=== PATIENT | female | born 1975 | race Caucasian/White ===

== ENCOUNTER → 2019-11-22 17:36 | Outpatient (CLI) | payer OTHER, SELFPAY ==
--- NOTE | ~2019-11-22 | XR_ITS ---
XR ankle RT min 3V, XR foot RT min 3V 11/22/2019 18:08 Indication: Right ankle and foot pain Procedure: 4 views right ankle and 4 views right foot Comparison: No prior studies for comparison. Findings: There is a transverse nondisplaced fracture distal fibula below the ankle mortise. Mild lat eral soft tissue swelling. No other fracture. There is a small degenerative calcaneal enthesophyte. L isfranc joint is intact. No focal soft tissue abnormality. No foreign bodies. Impression: 1: Transverse nondisplaced distal fibular fracture. Reviewed, dictated and finalized at location A. Impression: 1: Transverse nondisplaced distal fibular fracture. Impression: 1: Transverse nondisplaced distal fibular fracture.
== END ==
PROVIDERS: PCP Physician Assistant; Visit Provider Physician Assistant
DX: S82.424A Nondisplaced transverse fracture of shaft of right fibula, initial encounter for closed fracture (principal); X58.XXXA Exposure to other specified factors, initial encounter
CPT/HCPCS: 73610; 73630

== ENCOUNTER → 2022-09-20 07:03 | Outpatient (CLI) | payer OTHER, SELFPAY ==
--- NOTE | ~2022-09-20 | MM_ITS ---
EXAMINATION: MM screening [facility] BI w annie HISTORY: Screening mammogram TECHNIQUE: Craniocaudal and mediolateral oblique 3-D tomosynthesis images were obtained and synthetic 2-D images were generated. CAD analysis was submitted and interpreted. COMPARISON: 11/05/2018, 03/07/2016, 09/06/2013 BREAST PARENCHYMAL COMPOSITION: The breasts are heterogeneously dense, which may obscure small masses . FINDINGS: Stable focal asymmetry is again noted in the upper outer quadrant of the right breast. No s uspicious mass, calcification, or architectural distortion are identified in either breast to suggest malignancy. There has been no suspicious interval change. IMPRESSION: 1. No mammographic evidence of malignancy. 2. Recommend routine screening mammography in one year. BI-RADS Category 2: Benign finding(s). Reviewed, dictated and finalized at location A.
== END ==
PROVIDERS: PCP Physician Assistant; Visit Provider Physician Assistant
DX: Z12.31 Encounter for screening mammogram for malignant neoplasm of breast (principal)
CPT/HCPCS: 77063; 77067

== ENCOUNTER 2024-08-15 17:35 | Emergency (ER) | payer OTHER, SELFPAY ==
--- NOTE | 2024-08-15 17:37 | ED.SKABFB ---
HPI - Skin/Abscess/Foreign Bdy General Chief complaint: Skin/Abscess/Foreign Body Stated complaint: Insect Bite Time Seen by Provider: 08/15/24 17:57 Source: patient, RN notes reviewed and old records reviewed Mode of arrival: ambulatory Limitations: no limitations History of Present Illness HPI narrative: 49-year-old female presents to the [facility] with right upper posterior arm redness, swelling. Was done on Friday by a wasp. Had been icing. Has full range of motion of the elbow, shoulder, wrist. Strong workday senior associate noted. Area where she was stung possible sting in place. Onset (ago): day(s) (2) Related Data Allergies Allergy/AdvReac Type Severity Reaction Status Date / Time bupropion Allergy Intermediate rash Verified 08/15/24 17:37 hydrocodone Allergy Mild nausea Verified 08/15/24 17:37 Review of Systems Review of Systems: All systems reviewed & are unremarkable except as noted in HPI and below Constitutional: Constitutional: Reports no additional constitutional complaints ENT: Reports system reviewed and no additional complaints, except as documented Cardiovascular: Cardiovascular: Reports no additional cardiovascular complaints, Denies chest pain and Denies dyspnea Respiratory: Respiratory: Reports no additional respiratory complaints, Denies chest congestion, Denies cough and Denies dyspnea Musculoskeletal: Musculoskeletal: Reports no additional musculoskeletal complaints Integumentary/Breasts: Skin/Breast: Reports as per HPI [facility] Family History Family History Other Cerebrovascular accident Family history of arthritis Social History Social History Alcohol intake: current Comments At the time of my signature, I reviewed and agree with the nursing past medical, surgical, social, and family history. There is no relevant family history pertinent to the patient complaint. Exam Const: General: cooperative, healthy appearing, comfortable, no acute distress, well developed, alert and well nourished Nutritional Appearance: well nourished Orientation/consciousness: patient oriented x3 Limitations: no limitations HENMT: Head: normal to inspection Mouth: Yes Normal oral and palatal mucosa present, Yes lip normal, Yes tongue normal and Yes moist mucous membranes Eyes: General: appearance normal, both eyes and all related structures Alignment and Position: alignment normal Neck: Neck: normal visual inspection, full ROM, no lymphadenopathy and no meningeal signs Chest: Chest palpation & inspection: normal inspection of the chest Resp: Effort & Inspection: normal respiratory effort and able to speak in complete sentences Auscultation: clear to auscultation bilaterally, no crackles, no rales, no rhonchi and no wheezes Cardio: Rate: regular rate Skin: General skin exam: normal color and no rashes or lesions noted Other: 25 x 17 cm red area with increased warmth, no fluctuance. Concern for cellulitis versus localized reaction to a wasp sting. Area was cleaned with wound cleanser and saline, stinger was removed. Neuro: General: patient oriented x3, gait normal, moves all extremities and no meningeal signs Cognition (Neuro): normal cognition Speech: normal speech Gait exam (Neuro): Normal gait present Extrem: General: normal to inspection, full ROM, capillary refill normal and normal gait Psych: Appearance: grossly normal and well kempt Mental Status: mental status grossly normal Speech and movement: Normal speech and movement present and Clear speech present Affect: normal affect Attitude: cooperative Course Course Level of Care: Express Care Visit Vital Signs Vital signs: Vital Signs Temperature 98.1 F 08/15/24 17:49 Pulse Rate 110 H 08/15/24 17:49 Respiratory Rate 18 08/15/24 17:49 Blood Pressure 128/73 08/15/24 17:49 Pulse Oximetry 100 08/15/24 17:49 Oxygen Delivery Room Air 08/15/24 17:49 Temperature 98.1 F 08/15/24 17:49 Pulse Rate 110 H 08/15/24 17:49 Respiratory Rate 18 08/15/24 17:49 Blood Pressure 128/73 08/15/24 17:49 Pulse Oximetry 100 08/15/24 17:49 Oxygen Delivery Room Air 08/15/24 17:49 Reviewed MDM - Skin/Abscess/Foreign Bdy MDM Narrative Medical decision making narrative: Patient sitting comfortably in exam. Nontoxic, vitals stable. Patient in acute distress. Patient presents with redness, swelling and discomfort to the right posterior upper arm after being stung by a wasp. patient appropriate for outpatient treatment. No difficulty breathing, lip or tongue swelling. Discharge instructions reviewed with patient, as well as provided in writing per nursing staff. The instructions also include specific and strict return/GO TO THE ER as well as f/u information. All questions have been answered, and the patient deny any further questions with discharge and discharge plan. Some parts of this dictation were generated by voice recognition software and may contain typographical and/or grammatical inaccuracies. Differential Diagnosis Differential diagnosis: Likely abscess of skin or subcutaneous tissue, urticaria, cellulitis, insect bites and contact dermatitis Critical Care Time Critical Care Time Critical Care Time: No Discharge Plan Discharge Clinical Impression: Accidental wasp sting Patient Disposition: Home, Self-Care Condition: Stable Instructions: Antibiotic Form, Insect Bite or Sting (ED) Additional Instructions: take Tylenol alternating with Motrin as needed for pain. Apply ice every 2-3 hours for 15-20 minutes while awake. Take Benadryl 25-50 mg every 8 hours for itching Take Zyrtec 10mg every day x 2 weeks Take Pepcid 20mg daily for 2 weeks Take the steroids starting tonight Avoid hot showers, Take cool showers. Hot showers will make the redness worse Go to the ER for new or worsening symptoms such as shortness of breath. Patient Language: Croatian Prescriptions: New prednisone 20 mg tablet See Rx Instructions .Route .COMPLEX Qty: 9 0RF Rx Instructions: Take 40 mg daily for 3 days, 20 mg daily for 3 days cephalexin 500 mg capsule 500 mg PO Q8H 7 Days Qty: 21 0RF Follow-up/Referrals: Daniela,RAMIN De Anda [Primary Care Provider] - 2 Weeks ([facility] care follow up ) Stand Alone Forms: Work/School Release IP Time of Disposition: 18:08
[2024-08-15 17:49] VITALS: BP 128/73; PULSE 110; RESP 18; TEMP 36.7; O2SAT 100
== END 2024-08-15 18:15 | disposition home or self-care (01) ==
PROVIDERS: Emergency Provider Nurse Practitioner; PCP Physician Assistant
DX: T63.461A Toxic effect of venom of wasps, accidental (unintentional), initial encounter (principal); E78.00 Pure hypercholesterolemia, unspecified
CPT/HCPCS: 99203; G0463